=== PATIENT | female | born 1995 | race Caucasian/White ===

== ENCOUNTER → 2019-10-08 | Emergency (ER) | payer MEDICAID ==
[~2019-10-08] VITALS: Ht 160 cm; Wt 59.0 kg
[2019-10-08 22:51] LABS: Basophils # (auto) 0 10 ^3/uL (0-0.2); Basophils % (auto) 0.3 % (0.0-2.0); Eosinophils # (auto) 0.1 10 ^3/uL (0-0.8); Eosinophils % (auto) 0.9 % (0.0-7.0); Hematocrit 39.8 % (36.0-46.0); Lymphocytes # (auto) 2.1 10 ^3/uL (0.4-5.4); Lymphocytes % (auto) 24.5 % (10.0-50.0); Mean Corpuscular Hemoglobin 28.8 pg (28.0-32.0); Mean Corpuscular Hgb Conc. 32.8 g/dL (32.0-36.0); Mean Corpuscular Volume 87.8 fL (80.0-100.0); Monocytes # (auto) 0.6 10 ^3/uL (0-1.3); Monocytes % (auto) 7.1 % (0.0-12.0); Neutrophils # (auto) 5.8 10 ^3/uL (1.6-8.6); Neutrophils % (auto) 67.2 % (37.0-80.0); Platelet Count (auto) 267 10^3/uL (140-450); Red Blood Cells 4.53 10^6/uL (4.0-5.20); Red Cell Distribution Width 13.2 % (11.8-14.3); White Blood Cell 8.7 10^3/uL (4.4-10.8)
[2019-10-08 23:00] LABS: Urine Bacteria NONE SEEN /hpf (None Seen); Urine Blood Negative /uL (Negative); Urine Mucus FEW (None Seen); Urine Specific Gravity 1.015 (1.001-1.035); Urine WBC 1 /hpf (0 - 5)
[2019-10-08 23:13] LABS: Albumin 3.7 g/dL (3.4-5.0); Calcium 8.9 mg/dL (8.5-10.1); Potassium 3.7 mmol/L (3.5-5.1)
[2019-10-08 23:26] LABS: Bilirubin, Total 0.2 mg/dL (0.2-1.0); Total Protein 7.5 g/dL (6.4-8.2)
[2019-10-09 01:10] VITALS: BP 123/78
== END | disposition home or self-care (01) ==
LOC: ER 22:06
DX: R10.2 Pelvic and perineal pain (principal); M25.552 Pain in left hip; F17.210 Nicotine dependence, cigarettes, uncomplicated
CPT/HCPCS: 36415; 73501; 74176; 80053; 81001; 81025; 82150; 83690; 85025

== ENCOUNTER 2020-02-17 19:36 | Emergency (ER) | payer MEDICAID ==
[~2020-02-17] VITALS: Ht 160 cm; Wt 65.8 kg
[2020-02-17 21:27] VITALS: BP 131/86
== END 2020-02-17 21:31 | disposition home or self-care (01) ==
LOC: ER 19:43
DX: M25.511 Pain in right shoulder (principal); M79.631 Pain in right forearm; M25.521 Pain in right elbow; M79.10 Myalgia, unspecified site; F17.210 Nicotine dependence, cigarettes, uncomplicated
CPT/HCPCS: 73020; 73070; 73090

== ENCOUNTER 2021-03-08 13:38 | Emergency (ER) | payer MEDICAID ==
[~2021-03-08] VITALS: Ht 160 cm; Wt 72.6 kg
[2021-03-08 14:11] LABS: Urine WBC None Seen /hpf (0 - 5)
[2021-03-08 14:40] LABS: Basophils # (auto) 0 10 ^3/uL (0-0.2); Basophils % (auto) 0.1 % (0.0-2.0); Eosinophils # (auto) 0 10 ^3/uL (0-0.8); Eosinophils % (auto) 0.1 % (0.0-7.0); Hematocrit 43.3 % (36.0-46.0); Hemoglobin 14.2 g/dL (12.2-16.2); Lymphocytes # (auto) 1.5 10 ^3/uL (0.4-5.4); Lymphocytes % (auto) 14.4 % (10.0-50.0); Mean Corpuscular Hemoglobin 28.6 pg (28.0-32.0); Mean Corpuscular Hgb Conc. 32.8 g/dL (32.0-36.0); Mean Corpuscular Volume 87.1 fL (80.0-100.0); Monocytes # (auto) 0.5 10 ^3/uL (0-1.3); Monocytes % (auto) 4.4 % (0.0-12.0); Neutrophils # (auto) 8.7 10 ^3/uL (1.6-8.6); Red Blood Cells 4.97 10^6/uL (4.0-5.20); Red Cell Distribution Width 12.4 % (11.8-14.3); White Blood Cell 10.7 10^3/uL (4.4-10.8)
[2021-03-08 14:44] LABS: Urine Bacteria NONE SEEN /hpf (None Seen); Urine Blood Negative /uL (Negative); Urine Mucus FEW (None Seen); Urine Specific Gravity 1.015 (1.001-1.035)
[2021-03-08 15:10] LABS: Albumin 3.8 g/dL (3.4-5.0); Potassium 3.3 mmol/L (3.5-5.1)
[2021-03-08 15:33] LABS: BUN/Creatinine Ratio 5.7; Bilirubin, Total 0.2 mg/dL (0.2-1.0); Total Protein 7.9 g/dL (6.4-8.2)
[2021-03-08] MEDS ORDERED: ONDANSETRON HCL 4 MG/2 ML VIAL IV ONE (16:30)
[2021-03-08] MEDS ORDERED: PANTOPRAZOLE 40 MG/10 ML VIAL INJ IV ONE (16:30)
[2021-03-08] MEDS ORDERED: SODIUM CHLORIDE 0.9% 1,000 ML IV ONE (16:30)
[2021-03-08] MEDS ORDERED: MORPHINE SULFATE INJECTION 2 MG/ML SYRG IV ONE (16:30)
[2021-03-08 19:52] VITALS: BP 132/74
== END 2021-03-08 19:55 | disposition home or self-care (01) ==
LOC: ER 13:38
DX: O21.8 Other vomiting complicating pregnancy (principal); R10.9 Unspecified abdominal pain; O99.511 Diseases of the respiratory system complicating pregnancy, first trimester; J45.909 Unspecified asthma, uncomplicated; O99.331 Smoking (tobacco) complicating pregnancy, first trimester; Z3A.09 9 weeks gestation of pregnancy
CPT/HCPCS: 36415; 76801; 80053; 81001; 84702; 85025; 96361; 96374; 96375; 99284; C9113; J2405; J7030

== ENCOUNTER 2022-08-14 13:44 | Emergency (ER) | payer MEDICAID ==
[~2022-08-14] VITALS: Ht 160 cm; Wt 64.6 kg
[~2022-08-14 13:44] MED LIST: CEPH-510 PO
[2022-08-14 14:19] LABS: Basophils # (auto) 0 10 ^3/uL (0-0.2); Basophils % (auto) 0.3 % (0.0-2.0); Eosinophils # (auto) 0 10 ^3/uL (0-0.8); Hematocrit 47.5 % (36.0-46.0); Lymphocytes # (auto) 2.1 10 ^3/uL (0.4-5.4); Lymphocytes % (auto) 17.5 % (10.0-50.0); Mean Corpuscular Hemoglobin 28.3 pg (28.0-32.0); Mean Corpuscular Hgb Conc. 33.6 g/dL (32.0-36.0); Mean Corpuscular Volume 84.3 fL (80.0-100.0); Monocytes % (auto) 7.8 % (0.0-12.0); Neutrophils # (auto) 9.1 10 ^3/uL (1.6-8.6); Neutrophils % (auto) 74.4 % (37.0-80.0); Nucleated Red Blood Cells % 0.1 %; Red Blood Cells 5.63 10^6/uL (4.0-5.20); Red Cell Distribution Width 13.5 % (11.8-14.3); White Blood Cell 12.2 10^3/uL (4.4-10.8)
[2022-08-14 14:30] VITALS: BP 140/107
[2022-08-14 14:37] LABS: Albumin 4.4 g/dL (3.4-5.0); Calcium 9.7 mg/dL (8.5-10.1); Potassium 3.2 mmol/L (3.5-5.1)
[2022-08-14 14:39] LABS: Urine Bacteria NONE SEEN /hpf (None Seen); Urine Blood Negative /uL (Negative); Urine Specific Gravity 1.008 (1.001-1.035); Urine WBC 1 /hpf (0 - 5)
[2022-08-14 14:42] LABS: BUN/Creatinine Ratio 14.3; Bilirubin, Total 0.7 mg/dL (0.2-1.0); Total Protein 8.4 g/dL (6.4-8.2)
[2022-08-14] MEDS ORDERED: ONDANSETRON ODT 4 MG TAB PO ONE (15:00)
[2022-08-14 15:20] LABS: Alcohol, Urine < 3.0 mg/dL (0-10); Amphetamine Screen, Urine NEGATIVE (NEGATIVE); Barbiturate Scree,Urine NEGATIVE (NEGATIVE); Benzodiazephine Screen, Urine NEGATIVE (NEGATIVE); Cannabinoid Screen, Urine POSITIVE (NEGATIVE); Cocaine Screen, Urine POSITIVE (NEGATIVE); Opiate Scree,Urine NEGATIVE (NEGATIVE); Phencyclidine Screen, Urine NEGATIVE (NEGATIVE)
[2022-08-14] MEDS ORDERED: ACETAMINOPHEN 500 MG TAB PO ONE (15:45)
[2022-08-14] MEDS ORDERED: POTASSIUM CHL 20 Meq TABLET PO ONE (15:45)
[2022-08-14] MEDS ORDERED: MILK OF MAGNESIA 30ML SUSP PO ONE (18:00)
[2022-08-14] MEDS ORDERED: MAGN400S25 PO (18:07)
[2022-08-14] MEDS ORDERED: MAGNSOL PO (18:07)
== END 2022-08-14 18:07 | disposition home or self-care (01) ==
LOC: ER 13:44
DX: K59.00 Constipation, unspecified (principal); J45.909 Unspecified asthma, uncomplicated; F17.210 Nicotine dependence, cigarettes, uncomplicated; F12.10 Cannabis abuse, uncomplicated; Z90.49 Acquired absence of other specified parts of digestive tract; Z32.02 Encounter for pregnancy test, result negative; Z79.899 Other long term (current) drug therapy
CPT/HCPCS: 36415; 74176; 76705; 80053; 80307; 81001; 81025; 83690; 85025; 99284; Q0162